=== PATIENT | female | born 1985 | race Caucasian/White ===

== ENCOUNTER → 2017-08-15 | Outpatient (CLI) | payer OTHER ==
[~2017-08-15] MED LIST: ABAC300; Apidra100 UNIT/2 SC; HYDACE7.5 PO; HYDCHL50 PO; HYDSUL200 PO; INSLI100I SC; INSLIS75I SC; INSULANI SC; INSULANPEN SC; METTREX2.5 PO; OXYC30 PO; OXYC30ER PO; PRED10 PO; PRED5 PO; PROC5 PO
== END | disposition home or self-care (01) ==
LOC: LAB EV 14:36
DX: L03.019 Cellulitis of unspecified finger (principal)
CPT/HCPCS: 87070; 87075; 87077; 87186; 87205

== ENCOUNTER → 2017-09-02 | Outpatient (CLI) | payer OTHER ==
[2017-09-04 12:54] LABS: HPV Genotype 16 Not Detected (NOTDET); HPV Genotype 18 Not Detected (NOTDET)
[2017-09-15 10:38] LABS: HPV High Risk Other Not Detected (NOTDET)
== END | disposition home or self-care (01) ==
LOC: OLS 17:18 → LAB SHORT 17:18
PROVIDERS: Nurse Practitioner Women's Health
DX: Z12.4 Encounter for screening for malignant neoplasm of cervix (principal); N89.8 Other specified noninflammatory disorders of vagina; Z91.89 Other specified personal risk factors, not elsewhere classified
CPT/HCPCS: 87070; 87205; 87624; G0123

== ENCOUNTER → 2017-10-01 | Outpatient (CLI) | payer OTHER | END | disposition home or self-care (01) | LOC: LAB SHORT 16:23 → OLS 16:23 | DX: N89.8 Other specified noninflammatory disorders of vagina (principal) | CPT/HCPCS: 87070; 87147; 87205 ==

== ENCOUNTER → 2019-06-02 | Outpatient (CLI) | payer OTHER ==
[2019-06-03 09:44] LABS: Candida species (DNA Probe) Negative (NEGATIVE); G. vaginalis (DNA Probe) Positive (NEGATIVE); T. vaginalis (DNA Probe) Negative (NEGATIVE)
== END | disposition home or self-care (01) ==
LOC: LAB SHORT 11:47 → LAB 11:47
PROVIDERS: Nurse Practitioner Women's Health
DX: N89.8 Other specified noninflammatory disorders of vagina (principal)
CPT/HCPCS: 87070; 87205; 87480; 87510; 87660

== ENCOUNTER 2019-11-08 09:42 | Inpatient (IN) | payer OTHER ==
[~2019-11-08] VITALS: Ht 162.6 cm; Wt 72.6 kg
[2019-11-08 10:31] LABS: Base Excess Venous -19.6 mmol/L; Bicarbonate Venous 11.6 mmol/L (24.0-30.0); PCO2 Venous 22.1 mmHg (38-42); PO2 Venous 74.2 mmHg (38-42); pH Blood Venous 7.19 (7.34-7.37)
[2019-11-08 10:32] LABS: BASOPHILS PERCENT AUTO 1 % (0-2); EOSINOPHILS ABSOLUTE AUTO 0.04 K/mm3 (0.00-0.68); EOSINOPHILS PERCENT AUTO 0 % (0-6); Hematocrit 41.5 % (33.0-51.0); Hemoglobin 13.1 g/dL (11.5-16.0); IMMATURE GRAN ABSOLUTE AUTO 0.06 K/mm3 (0.00-0.10); IMMATURE GRAN PERCENT AUTO 1 % (0-1); LYMPHOCYTES ABSOLUTE AUTO 1.54 K/mm3 (0.84-5.20); LYMPHOCYTES PERCENT AUTO 12 % (21-46); MONOCYTES ABSOLUTE AUTO 0.43 K/mm3 (0.16-1.47); MONOCYTES PERCENT AUTO 3 % (4-13); Mean Corpuscular HGB 31.6 pg (26.0-34.0); Mean Corpuscular HGB Conc 31.6 g/dL (31.5-36.5); Mean Corpuscular Volume 100 fL (80-100); Mean Platelet Volume 10.2 fL (9.1-12.4); NEUTROPHILS ABSOLUTE AUTO 10.34 K/mm3 (1.96-9.15); NEUTROPHILS PERCENT AUTO 83 % (41-73); Platelet Count 431 K/mm3 (150-400); RDW Coefficient Variation 15.7 % (11.7-14.2); RDW Standard Deviation 57.3 fL (35.1-46.3); Red Blood Cell Count 4.14 M/mm3 (3.80-5.20); White Blood Cell Count 12.51 K/mm3 (4.00-11.30)
[2019-11-08 10:58] LABS: Alanine Aminotransfer (ALT/SGP 160 U/L (12-78); Albumin, Blood 3.5 g/dL (3.4-5.0); Albumin/Globulin Ratio 0.7 (0.8-1.8); Alk Phos 127 U/L (50-136); Anion Gap 31 mmol/L (6-16); Aspartate Aminotrans (AST/SGOT 128 U/L (12-37); Beta-hydroxybutyrate 87.5 mg/dL (0.2-2.8); Bilirubin, Total 0.6 mg/dL (0.1-1.0); Blood Urea Nitrogen 20 mg/dL (8-24); CO2, Blood 7 mmol/L (21-32); Chloride, Blood 98 mmol/L (98-108); Creatinine, Blood 1.05 mg/dL (0.40-1.00); Globulin, Blood 5.2 g/dL (2.2-4.0); Glomerular Filtration Rate >60 (60-); Glucose, Blood 394 mg/dL (70-99); Potassium, Blood 4.5 mmol/L (3.5-5.5); Sodium, Blood 136 mmol/L (136-145); Total Protein, Blood 8.7 g/dL (6.4-8.2)
[2019-11-08] MEDS ORDERED: BASAGLAR K100 UNIT/2 SC (11:40)
[2019-11-08] MEDS ORDERED: Apidra Sol100 UNIT/1 PO (11:40)
[2019-11-08] MEDS ORDERED: OXYC30 PO (11:43)
[2019-11-08] MEDS ORDERED: METH5 PO (11:43)
[2019-11-08] MEDS ORDERED: Methotrexate2.5 MG PO (11:52)
[2019-11-08] MEDS ORDERED: PRED5 PO (11:52)
[2019-11-08 12:05] LABS: Source, Urine Clean Catch
[2019-11-08 12:37] LABS: Bilirubin, Urine Neg (Neg); Blood, Urine 1+ (Neg); Glucose Qualitative, Urine 4+ (Neg); Ketones, Urine 4+ (Neg); Leukocyte Esterase, Urine Neg (Neg); Nitrite, Urine Pos (Neg); Protein, Urine 3+ (Neg); Specific Gravity, Urine 1.025 (1.003-1.022); Urobilinogen, Urine NORM (Normal)
[2019-11-08 12:38] LABS: Appearance, Urine Clear (Clear); Color, Urine Pale Yellow (P-Yellow)
[2019-11-08 12:40] LABS: Bacteria Few /hpf; Squamous Epithelial Cells Few /hpf (Few)
--- NOTE | 2019-11-08 13:10 | NUR ---
ARRIVAL NOTE/INITIAL ASSESSMENT: PT ARRIVED VIA ER GURNEY. STOOD AND PIVOTED TNX'D TO BED WITH STEADY GAIT. PT DENIES ANY PAIN/NAUSEA AT THIS TIME. ALERT AND ORIENTED X3. PLEASANT AND COOPERATIVE WITH CARE. PT ABLE TO REPOSITION SELF IN BED. LUNGS ARE CLEAR T/O BILATERALLY. SP02 SATS >90% ON RA. HR REGULAR, SR/ST 90-100'S RANGE. LR BOLUS FINISHING FROM ER WELL NS BOLUS INFUSING AT THIS TIME. ABD SOFT/ROUND/NON-TENDER. BT'S ARE HYPOACTIVE AND PT REPORTS SHE HAS NOT BEEN ABLE TO KEEP ANYTHING DOWN, "SINCE YESTERDAY." REPORTS SHE WOKE UP THIS AM WITH NAUSEA/VOMITTING. NO VOID YET. -FULL CODE STATUS -OBTAIN F/U CHEMISTRY WHEN POTASSIUM IVPB DONE -CBG Q1H
[2019-11-08 14:40] LABS: Albumin, Blood 2.9 g/dL (3.4-5.0); Anion Gap 20 mmol/L (6-16); Blood Urea Nitrogen 19 mg/dL (8-24); Bun/Creatinine Ratio 19.6 (12.0-20.0); CO2, Blood 12 mmol/L (21-32); Calcium, Blood 7.8 mg/dL (8.5-10.1); Chloride, Blood 104 mmol/L (98-108); Creatinine, Blood 0.97 mg/dL (0.40-1.00); Glomerular Filtration Rate >60 (60-); Glucose, Blood 178 mg/dL (70-99); Potassium, Blood 4.5 mmol/L (3.5-5.5); Sodium, Blood 136 mmol/L (136-145)
--- NOTE | 2019-11-08 15:05 | NUR ---
PT UPDATE: PT REMAINS ADAMENT ABOUT LEAVING AMA, EVEN AFTER DISCUSSING CASE WITH DR GERONIMO. IV'S REMOVED, CATH INTACT. CONTINUED TO DISCUSS THE F/U CARE PT WILL NEED R/T ELEVATED ANION GAP AND DECREASED C02 LEVELS AND PEDNING URINE CX. PT REPORTS SHE HAS A FRIEND THAT WILL BE TAKING HER HOME.
--- NOTE | 2019-11-08 15:08 | NUR ---
PT LEAVING AMA: PT REPORTS THAT SHE IS LEAVING AMA. WILL HAVE HER SIGN AMA FORM. EXPLAINED BENEFITS/RISKS OF LEAVING, IT APPEARS PT HAS A UTI. URINE CX'S PENDING. CALLED DR GERONIMO TO INFORM HER OF PENDING AMA AND TNX'D DR INTO PT'S ROOM.
--- NOTE | 2019-11-08 15:20 | NUR ---
PT LEFT AMA: THIS RN AMBULATED PT OFF THE UNIT TO THE ER ENTRANCE WHERE SHE REPORTS HER FRIEND IS WAITING FOR HER TO TAKE HER HOME.
== END 2019-11-08 15:40 | disposition left against medical advice (07) | DRG 638 ==
LOC: ER 09:42 → ICUW 09:43 → ER 09:43 → ICUW 12:47
PROVIDERS: Emergency Medicine; ADMIT Internal Medicine
DX: E10.10 Type 1 diabetes mellitus with ketoacidosis without coma (principal); N39.0 Urinary tract infection, site not specified; M06.9 Rheumatoid arthritis, unspecified; G89.4 Chronic pain syndrome; R74.0 Nonspecific elevation of levels of transaminase and lactic acid dehydrogenase [LDH]; Z79.4 Long term (current) use of insulin; Z79.52 Long term (current) use of systemic steroids
CPT/HCPCS: 36415; 80053; 80069; 81001; 82010; 82803; 82947; 83605; 83690; 85025; 87086; 96361; 96365; 96375; 96376; 99285-25; J0696; J1630; J1815; J2405; J3480; J7030; J7120

== ENCOUNTER 2020-10-15 21:52 | Emergency (ER) | payer OTHER ==
[~2020-10-15] VITALS: Ht 160 cm; Wt 70.3 kg
[~2020-10-15 21:52] MED LIST changes: +Apidra Sol100 UNIT/1 PO; +BASAGLAR K100 UNIT/2 SC; +METH5 PO; +Methotrexate2.5 MG PO
[2020-10-16] MEDS ORDERED: Vibramycin100 MG PO (00:34)
[2020-10-16] MEDS ORDERED: HYDSUL200 (00:48)
== END 2020-10-16 00:57 | disposition home or self-care (01) ==
LOC: ER 21:52
DX: S81.051A Open bite, right knee, initial encounter (principal); S71.152A Open bite, left thigh, initial encounter; S71.151A Open bite, right thigh, initial encounter; F17.290 Nicotine dependence, other tobacco product, uncomplicated; Z23 Encounter for immunization; W54.0XXA Bitten by dog, initial encounter
CPT/HCPCS: 12001; 90471; 90714; 99283; A9270; A9270-GY

== ENCOUNTER → 2024-03-25 | Outpatient (CLI) | payer OTHER ==
[~2024-03-25] MED LIST changes: +HYDSUL200; +Vibramycin100 MG PO
== END ==
LOC: LAB SHORT 16:05 → LAB 16:05
DX: R30.0 Dysuria (principal)
CPT/HCPCS: 87077; 87086; 87186